=== PATIENT | female | born 1995 | race Caucasian/White ===

== ENCOUNTER 2019-04-26 11:25 | Emergency (ER) | payer SELFPAY ==
[~2019-04-26] VITALS: Ht 154.9 cm; Wt 60.8 kg
[2019-04-26 11:28] VITALS: BP 130/70
--- NOTE | 2019-04-26 11:50 | NUR ---
aC/O VAGINAL BLEEDING X2 DAYS. PT REPORTS SPOTTING 2 DAYS AGO, AND WOKE UP THIS MORNING WITH INCREASED BLEEDING. 6 WEEKS , LMP 03/17/19, 12/21/19, . PT DENIES VAGINAL PAIN OR DISCHARGE. CONSTANT SHARP LT SIDED LOWER BACK PAIN AT 4/10. DENIES UTI SYMPTOMS. DENIES N/V/D; SKIN IS PINK/WARM/DRY; AAOX4 WITH EVEN AND STEADY GAIT; PT DENIES ANY FEVER, CP, SOB, OR COUGH AT THIS TIME; VSS; PATIENT POSITIONED FOR COMFORT; HOB ELEVATED; BEDRAILS UP X1; BED DOWN. ER MD MADE AWARE OF PT STATUS. BOYFRIEND IS AT BEDSIDE.
[2019-04-26 12:10] LABS: BILIRUBIN,URINE 1+ (NEGATIVE); BLOOD, URINE 3+ (NEGATIVE); COLOR,URINE ORANGE (YELLOW); LEUKOCYTE ESTERASE ,URINE NEGATIVE (NEGATIVE); NITRITE, URINE NEGATIVE (NEGATIVE); UGLUCOSE NEGATIVE (NEGATIVE)
[2019-04-26 12:10] LABS: BASOPHILS % (AUTO) 0.3 % (0.0-2.0); EOSINOPHILS # (AUTO) 0.1 K/uL (0-0.4); EOSINOPHILS % (AUTO) 1.6 % (0.0-4.0); HEMATOCRIT 37.4 % (36-48); HEMOGLOBIN 12.7 g/dL (12.0-16.0); LYMPHOCYTES # (AUTO) 1.6 K/uL (2.5-16.5); LYMPHOCYTES % (AUTO) 23.2 % (20.5-51.1); MEAN CORPUSCULAR HEMOGLOBIN 29 pg (27-31); MEAN CORPUSCULAR HGB CONC 34 g/dL (33-37); MEAN CORPUSCULAR VOLUME 86.4 fL (80-94); MONOCYTES # (AUTO) 0.4 K/uL (0.8-1.0); MONOCYTES % (AUTO) 5.4 % (1.7-9.3); NEUTROPHILS # (AUTO) 4.8 K/uL (1.8-7.7); NEUTROPHILS % (AUTO) 69.5 % (42.2-75.2); PLATELET COUNT (AUTO) 218 K/uL (140-450); RED BLOOD CELL COUNT(AUTO) 4.34 MIL/uL (4.20-5.40); RED CELL DISTRIBUTION WIDTH 14.6 % (11.6-13.7); WHITE BLOOD COUNT (AUTO) 6.9 K/uL (4.8-10.8)
[2019-04-26 12:13] LABS: ANION GAP 13.5 (8-16); CARBON DIOXIDE 23.5 mmol/L (21-32); CREATININE 0.5 mg/dL (0.6-1.3)
[2019-04-26 12:34] LABS: WBC,URINE 0-5 /HPF (0-5)
[2019-04-26 12:35] LABS: APPEARANCE,URINE HAZY (CLEAR); RBC,URINE 11-20 (MOD) /HPF (0-5)
[2019-04-26 13:26] VITALS: BP 128/69
--- NOTE | 2019-04-26 13:35 | NUR ---
Patient discharged with v/s stable. Written and verbal after care instructions given and explained. Patient verbalized understanding. Ambulatory with steady gait. All questions addressed prior to discharge. Advised to follow up with PMD.
== END 2019-04-26 13:35 | disposition home or self-care (01) ==
LOC: MED 11:25
DX: O20.9 Hemorrhage in early pregnancy, unspecified (principal); Z3A.01 Less than 8 weeks gestation of pregnancy
CPT/HCPCS: 36415; 76801; 80048; 81001; 81025; 84702; 85025; 86900; 86901; 99284; Q0092

== ENCOUNTER 2020-06-14 13:09 | Outpatient (CLI) | payer MEDICAID, SELFPAY ==
[2020-06-25] MEDS ORDERED: PNV1TABL5 PO (01:37)
== END 2020-06-14 20:09 | disposition home or self-care (01) ==
LOC: MLB 13:09
PROVIDERS: ATTEND Obstetrics & Gynecology
DX: Z11.59 Encounter for screening for other viral diseases (principal)
CPT/HCPCS: U0003-CS

== ENCOUNTER 2023-06-03 18:42 | Emergency (ER) | payer MEDICAID, OTHER ==
[~2023-06-03] VITALS: Ht 154.9 cm; Wt 68.0 kg
[~2023-06-03 18:42] MED LIST: PNV1TABL5 PO
[2023-06-03 19:30] VITALS: BP 132/85; PULSE 66; RESP 15; TEMP 97.9; O2SAT 99
--- NOTE | 2023-06-03 19:39 | NUR ---
PT TRIAGED AND AMBULATED TO IN STABLE CONDITION.
--- NOTE | 2023-06-03 20:29 | NUR ---
MD HORN ASSESSING PT.
[2023-06-03 20:31] VITALS: BP 132/85; PULSE 66; RESP 15; TEMP 97.9; O2SAT 99
[2023-06-03] MEDS ORDERED: CETI10SG1 PO (21:09)
[2023-06-03] MEDS ORDERED: PRED20TA5 PO (21:09)
--- NOTE | 2023-06-03 21:27 | NUR ---
Patient discharged. Written and verbal after care instructions given and explained. Patient alert, oriented and verbalized understanding of instructions. Ambulatory with steady gait. All questions addressed prior to discharge. ID band removed. Patient advised to follow up with PMD. Rx of Zyrtec and Prednisone given. Patient educated on indication of medication including possible reaction and side effects. Opportunity to ask questions provided and answered.
== END 2023-06-03 21:27 | disposition home or self-care (01) ==
LOC: MED 18:42
DX: K13.0 Diseases of lips (principal); Z79.899 Other long term (current) drug therapy
CPT/HCPCS: 99283